=== PATIENT | female | born 1980 | race Caucasian/White ===

== ENCOUNTER → 2020-09-08 10:58 | Outpatient (CLI) | payer OTHER, SELFPAY ==
--- NOTE | 2020-09-08 | IMM_PTH ---
PATIENT: FORREST IGLESIAS LOC: [facility] U#:[id number] AGE/SX: 45/F ROOM: RE09/08/[address]: Dr. Zina Davis MD : 1980 BED: DIS: SPEC #: [id number] RECD: 09/09/20 13:30 STATUS: PEREZ REQ #: [id number] SHANICE: 09/08/20 00:[address]: Zina Davis DEPT: IMMUNOHISTOCHEMISTRY RECD BY: Nayeli Yip ENTERED: 09/09/20 13:31 SP TYPE: IMMUNO OTHR DR: No Primary Care Phys Tissues: Right breast, NOS Procedures: Calponin-1(initial) WI (add) P40 (add) ER (initial) PHYSICIAN & INSTITUTION [place] [id number] SPECIMEN INFORMATION: Tissue Source: Right breast core tissue Clinical Info: Right breast calcifications Specimen Number: [id number] CPT code: 80921, 93278 x3 METHODOLOGY: Deparaffinized sections of prefer/formalin-fixed tissue or PAP/DQ stained slides are incubated with monoclonal/polyclonal antibodies/oligonucleotide probes. Localization is made via biotin free immunoperoxidase method. Appropriate controls are performed and reacted as expected. Results on target cell population are indicated in the following table: RESULTS: ANTIBODY / CLONE RESULT ER (6F11) positive, 95% strong WI (1E2) positive, 95% strong P40 (BC28) positive Calponin-1 (PC206M) positive These tests were developed and their performance characteristics determined by [facility]. They may not have been cleared or approved by the U.S. Food and Drug Administration. The FDA has determined that such clearance or approval is not necessary. The above immunohistochemical/dualISH markers are ordered and reviewed by the Pathologist. 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 AM:melanie 09/10/20
--- NOTE | 2020-09-08 | BRBX_PTH ---
PATIENT: FORREST IGLESIAS LOC: [facility] U#:[id number] AGE/SX: 45/F ROOM: RE09/08/[address]: Dr. Zina Davis MD : 1980 BED: DIS: SPEC #: [id number] RECD: 09/08/20 13:16 STATUS: PEREZ CHEY #: [id number] SHANICE: 09/08/20 00:[address]: Zina Davis DEPT: SURGICAL PATHOLOGY RECD BY: Ramesh Valenzuela ENTERED: 09/08/20 13:16 SP TYPE: BREAST BX OT DR: No Primary Care Phys Tissues: Right breast, NOS Procedures: Surgery Specimen Level IV HEADER OPERATION: Right breast stereotactic biopsy PRE-OP DIAGNOSIS: Right breast calcifications TISSUE SUBMITTED: Right breast core tissue ISCHEMIC TIME: 1 minute FIXATION TIME: 7.5 hours MICROSCOPIC DIAGNOSIS Right breast, stereotactic needle core biopsy: Ductal carcinoma in situ with the following characteristics: Type - cribriform and solid with focal central necrosis and associated microcalcifications. Nuclear Grade - 2-3 See comment. AM:melanie 09/09/20 COMMENT Immunohistochemistry ([id number]) supports the above diagnosis. Case has been reviewed in consultation with Dr. Ndiaye who concurs with the above diagnosis. IDC:SJ MICROSCOPIC DESCRIPTION Slides are reviewed. GROSS DESCRIPTION Received is one container labeled with the patient's name and not further designated. The specimen consists of multiple irregular and elongated fragments of white-yellow soft tissue that in aggregate measure 2.5 x 2 x 0.2 cm. The specimen is totally submitted in one cassette. / AM:melanie 09/08/20 TC:0 CPT: 90793 ADDENDUM ADDENDUM ADDENDUM ADDENDUM ADDENDUM ADDENDUM ADDENDUM ADDENDUM ADDENDUM ADDENDUM ADDENDUM ADDENDUM ADDENDUM 11/11/2020 11:24 ADDENDUM 11/11/2020 11:24 ADDENDUM 11/11/2020 11:24 ADDENDUM 11/11/2020 11:24 ADDENDUM 11/11/2020 11:24 This addendum is added to incorporate an outside pathology consultation report. The case was examined at [facility] (#[id number]) and the following diagnosis was rendered. Right breast, stereotactic needle core biopsy: Ductal carcinoma in situ, cribriform and solid types, nuclear grade 2-3, with comedo necrosis and microcalcifications. Estrogen receptor is positive. Progesterone receptor is positive. Please see complete above mentioned consultation report in EMR
--- NOTE | 2020-09-08 07:45 | HP.PCM_ITS ---
History and Physical Date of Admission: 09/08/20 HISTORY AND PHYSICAL ? Kelly Zafar 1980 ? ? REFERRING PHYSICIAN: Rossy Valenzuela (Shante),* ? CHIEF COMPLAINT: Consult (Consult Breast) ? HPI: The patient is a 40 year old female presents with right breast mass and abnormal calcifications of right breast on mammograms. She states that she has noted lesion - the right breast mass - for the past two weeks She states that it is between size of pea and small grape. She notes tenderness with palpation. She denies overlying skin changes. Denies nipple discharge. Denies previous breast biopsies. Denies palpable left breast masses Denies breast pain, except palpation of lesion causes pain. No breast or ovarian cancer known in family. The palpable lesion is noted on breast ultrasound. The patient also is noted to have abnormal calcifications on mammograms. ? US/mammograms right breast 08/12/2020 There is 1.4 cm x 0.5 cm x 1.1 cm lobulated mass with an indistinct margin in the right breast at 2 o'clock posterior depth 4 cm from the nipple. ?This lobulated mass is hypoechoic with internal echoes. ?This correlates as palpated and with mammography findings. IMPRESSION: SUSPICIOUS FINDING - BIOPSY SHOULD BE CONSIDERED The 1.4 cm x 0.5 cm x 1.1 cm lobulated mass in the right breast is suspicious of malignancy. ?An ultrasound guided biopsy is recommended IMPRESSION: SUSPICIOUS FINDING - BIOPSY SHOULD BE CONSIDERED The 1.5 cm irregular fat containing mass in the right breast at 1 o'clock middle depth is suspicious of malignancy. ?An ultrasound guided biopsy is recommended. The grouped pleomorphic calcifications in the right breast at 9 o'clock anterior depth are suspicious of malignancy. ?A stereotactic biopsy is recommended. ? ? PAST MEDICAL HISTORY Diagnosis Date ? Bipolar 1 disorder, depressed, moderate (HCC) ? ? 6-7 years ago, sees counseling center ? Epilepsy (HCC) ? ? dx @ age 5, sees neurology in [place], Dr. Olmstead at [facility] ? PAST SURGICAL HISTORY Procedure Laterality Date ? ECTOPIC - TREATMENT ? 12/2011 ? ORAL SURGERY PROCEDURE ? 2017 ? ? Current Outpatient Medications Medication Sig ? cholecalciferol, Vitamin D3, (VITAMIN D3) 1,250 mcg (50,000 unit) cap capsule Take 1 capsule by mouth one time a week for 8 doses. (Patient not taking: Reported on 08/12/2020 ? divalproex ER (DEPAKOTE ER) 500 mg 24 hr tablet Take 1 tablet by mouth daily at bedtime. ? folic acid 1 mg tablet Take 1 tablet by mouth once daily. ? ? ALLERGIES: Patient has no known allergies. ? PERSONAL HISTORY: Social History ? Tobacco Use ? Smoking status: Current Every Day Smoker ? ? Packs/day: 1.00 ? ? Types: Cigarettes ? Smokeless tobacco: Never Used Substance Use Topics ? Alcohol use: No ? Drug use: No ? FAMILY HISTORY Problem Relation Age of Onset ? Cancer Father ? ? Heart Brother ? ? enlarged heart ? ? REVIEW OF SYSTEMS: General: The patient denies fatigue though she states that she is very tired this morning, denies weight loss, denies weight gain, denies feeling hot, and denies feelings of cold. Eyes: The patient denies glaucoma, denies eye injury/surgery, does not wear glasses or contacts. Ear/Nose/Throat: The patient denies allergies, denies hayfever, denies ear infections, and denies bloody noses. Cardiovascular: The patient denies chest pain, denies heart disease, denies high blood pressure,denies cardiac stent, denies prior heart attack, denies irregular heart beat, denies high cholesterol, denies poor circulation, denies heart failure, other cardiac issues, denies claudication, denies cold feet, denies peripheral arterial stent. Respiratory: The patient denies tuberculosis, denies pneumonia, denies frequent cough, denies pulmonary embolism, denies shortness of breath, and denies coughing up blood. Gastrointestinal: The patient denies difficulty swallowing, denies acid reflux, denies ulcers, denies vomiting, denies jaundice/hepatitis, denies gallbladder problems, denies black or tarry stools, denies hemorrhoids, denies bleeding from rectum, denies diverticulitis, NOTES constipation, denies diarrhea, denies loss of stool control, and denies hernias. Kidney/Bladder: The patient denies kidney stones, denies urine infections, and denies bloody urine. Skin: The patient denies a history of skin cancer, denies bleeding /changing moles, and denies a history of skin rash. Neurologic: The patient denies a history of epilepsy/convulsions, NOTES headaches, denies head/spinal injuries, and denies stroke/TIA. Psychiatric: The patient denies psychiatric medications, NOTES depression, and denies voices, denies substance abuse. Endocrine: The patient denies thyroid disorders, denies diabetes, and denies hormonal problems. Hematologic: The patient denies a history of bruising, denies bleeding, and NOTES anemia, denies blood clots. Infections: The patient denies a history of measles and mumps, denies rheumatic fever, and denies sexually transmitted diseases. Musculoskeletal: The patient denies back pain/injury, denies back problems, denies sciatica, denies knee/foot trouble, denies arthritis, or denies gout. Obstetrical: menarche onset at age 13, , first at age 19, breast feeding denies, BCP use denies, LMP 08/10/2020 When was patient's last Mammogram screening? 07/2020 Last Colonoscopy: N/A Billy Ovalles LPN ? ? PHYSICAL EXAMINATION: General: The patient is 40 year old female, well nourished, well hydrated in no acute distress. The patient is oriented to time, place, and person. VITALS: Pulse 107, temperature 36.6 ?C (97.8 ?F), weight 55.7 kg (122 lb 12.8 oz), SpO2 98 %. Body mass index is 21.75 kg/m?. Head ? Normocephalic. EOM intact with sclera clear and no icterus noted. Mouth with mucus membranes moist. Neck - supple with no jugular venous distention noted. Trachea is midline. No carotid bruits noted. No thyroid enlargement or thyroid nodules detected. No masses noted. Chest/breast ? no asymmetry of breasts noted, no suspicious skin lesions noted, no nipple discharge and both nipples everted, palpable discrete lesion of right breast at 2:00 position about 6 cm from nipple - near the sternal border. Lungs ? clear to auscultation. Normal breath sounds. No rales/rhonchi/wheezing noted. No labored breathing noted, such as retractions. No cough heard. Heart ? normal S1 and S2 auscultated. No rubs/clicks/murmurs noted. Regular rate. Abdomen ? soft and benign. Normal bowel sounds No abdominal bruits noted. Extremities ? no calf tenderness noted. No pitting edema noted. Skin ? normal skin integrity. Lymph ? no cervical adenopathy detected, no supraclavicular adenopathy detected, no axillary adenopathy detected Neurological ? gait normal, no focal deficits noted Psych ? calm and appropriate RADIOLOGIC STUDIES: As Noted ? ? IMPRESSION: right breast mass - palpable, abnormal calcifications seen on right breast mammograms ? PLAN: I have discussed the above with the patient. I have reviewed the breast radiographs with the patient. I have explained that there are two findings that need to be addressed - the calcifications and the breast mass - both on the right breast. I have offered right breast stereotactic biopsy. I have offered US guided needle core breast biopsy. I have explained the procedures to the patient. I have counseled the patient as to the risks of the procedure, including but not limited to: infection, bleeding, injury to any blood vessels/nerves, scar tissue, wound infections, complications of anesthesia, etc. ? the patient understands. She wishes to have the right breast mass completely excised and does not want a needle core biopsy for this lesion. Will therefore schedule for right breast stereotactic biopsy and excisional right breast biopsy. The patient wishes to proceed. ? ? I have answered all questions to the patient?s satisfaction and the patient has no further questions. . Diagnoses: (N63.10) Breast mass, right (primary encounter diagnosis) (R92.1) Mammographic calcification (R92.8) Abnormal ultrasound of breast Return to Clinic: The patient is instructed to follow-up with me after after the procedures ?
--- NOTE | 2020-09-08 12:51 | PCM.OPRPT ---
Report of Operation Date of Procedure: 09/08/20 Pre-Operative Diagnosis: abnormal calcifications on right breast mammograms Post-Operative Diagnosis: same Surgery/Procedure Performed:: right breast stereotactic biopsy Description of Surgical Findings:: calcifications around the nipple areolar area of the right breast Type of Anesthesia:: Local - 1% xylocaine Specimen's removed: right breast tissue Estimated Blood Loss (mL): < 1 ml Description of Procedure: After informed consent was given, the patient was brought into the Breast Biopsy suite. Appropriate time out protocol was followed. The patient was placed in the prone position on the stereotactic biopsy table. The patient?s right breast was then placed in the opening at the head of the biopsy table. A vendor management specialist compression mammogram was then obtained in the lateral view. The suspicious radiological lesion was thus identified. Stereo pictures of the lesion were then taken for XYZ coordinates. The Mammotome biopsy stylus was then positioned where it would be entering into the patient?s breast. The skin at this site was then cleansed with a surgical skin preparation. The skin and subcutaneous tissues at this site were then infiltrated with 1% xylocaine. A small skin incision was made with an 11 blade scalpel. The biopsy stylus was then positioned into the patient?s breast at the proper coordinates of depth. Using the Mammotome vacuum-assist device, several core samples of breast tissue were obtained. A specimen mammogram was the obtained. It revealed that the abnormal calcifications were within the specimen. I reviewed this personally and concluded that the tissue sampling was adequate. A hemostatic marker clip was then placed into the biopsy cavity and a vendor management specialist film revealed that it was properly deployed. A suture was placed to reapproximated the incision site. The patient was then placed in the supine position and pressure was applied to the breast until no active bleeding was noted. Sterile dressing was applied to the site. A unilateral mammogram in the CC and MLO view were then taken which revealed that the marker clip was in the same area as the previous suspicious lesion. The patient tolerated the procedure well and was discharged from the Breast Biopsy suite in good condition. - Complications none noted
== END ==
PROVIDERS: Referring Provider Surgery; Visit Provider Surgery
DX: D05.81 Other specified type of carcinoma in situ of right breast (principal); F17.210 Nicotine dependence, cigarettes, uncomplicated
CPT/HCPCS: 19081; 88305; 88341; 88342; J7050

== ENCOUNTER 2023-07-24 15:53 | Emergency (ER) | payer OTHER, SELFPAY ==
[2023-07-24 15:54] VITALS: BP 119/87; PULSE 83; RESP 14; TEMP 36.2; O2SAT 100; BMI 21.5
--- NOTE | 2023-07-24 16:43 | RAD_ITS ---
EXAM: XR LEFT FOOT COMPLETE, 3 OR MORE VIEWS CLINICAL INDICATION: trauma TECHNIQUE: Frontal, lateral and oblique views of the left foot. COMPARISON: No relevant prior studies available. FINDINGS: BONES/JOINTS: Unremarkable. No acute fracture. No subluxation. Normal alignment. Preservation of the joint space. No sclerotic or destructive changes observed. SOFT TISSUES: Unremarkable. No soft tissue swelling or gas. No radiopaque foreign body. RAD/Foot min 3 Views IMPRESSION: Negative left foot x-rays. Electronically Signed: Hemanth Barrera MD at 17:04 EDT ,
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
--- NOTE | 2023-07-24 16:47 | US_ITS ---
EXAM: US DUPLEX LEFT LOWER EXTREMITY VEINS CLINICAL INDICATION: left leg/ foot pain TECHNIQUE: Real-time duplex ultrasound scan of the left lower extremity veins integrating B-mode two-dimensional vascular structure, Doppler spectral analysis, color flow Doppler imaging and compression. COMPARISON: No relevant prior studies available. FINDINGS: DEEP VEINS: Unremarkable. No DVT in the visualized common femoral, femoral, proximal deep femoral or popliteal veins. The veins demonstrate normal color flow, are normally compressible, with normal phasic flow and/or augmentation response. SUPERFICIAL VEINS: Unremarkable. No thrombus in the visualized great saphenous vein. SOFT TISSUES: No acute findings. No popliteal cyst. US/Venous Duplex Imag/Limited/Uni IMPRESSION: Normal left lower extremity duplex venous ultrasound. Electronically Signed: Hemanth Barrera MD at 17:49 EDT ,
== END 2023-07-24 17:57 | disposition home or self-care (01) ==
LOC: ED 17:12
PROVIDERS: Emergency Provider Emergency Medicine; Visit Provider Emergency Medicine
DX: S90.32XA Contusion of left foot, initial encounter (principal); F17.210 Nicotine dependence, cigarettes, uncomplicated; M79.89 Other specified soft tissue disorders; W51.XXXA Accidental striking against or bumped into by another person, initial encounter
CPT/HCPCS: 73630; 93971; 99282